=== PATIENT | male | born 1970 | race Caucasian/White ===

== ENCOUNTER 2019-02-13 17:23 | Inpatient (IN) | payer MEDICARE, OTHER ==
[~2019-02-13] VITALS: Ht 182.9 cm; Wt 65.2 kg
[~2019-02-13 17:23] MED LIST: BACL10TA PO; HYDR-3498 PO; HYDR25SU24 PR; IMIP25TA3 PO; MAGN400O19 PO; OMEP20CA16 PO; POLY17PO6 PO; SENN-120 PO; TOLT4CAP PO
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
[2019-02-13] MEDS ORDERED: ACETAMINOPHEN 325 MG TAB PO PRN (20:00)
[2019-02-13] MEDS ORDERED: ONDANSETRON 4 MG INJ IV PRN ×2 (20:00→23:30)
[2019-02-13 22:00] VITALS: BP 123/68; PULSE 76; RESP 18
[2019-02-13] MEDS ORDERED: HYDROCODONE/APAP (5/325) TAB PO PRN ×4 (23:30)
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
[2019-02-14 01:48] VITALS: BP 98/55; PULSE 66; RESP 18
[2019-02-14] MEDS ORDERED: PANTOPRAZOLE (EC) 40 MG TAB PO SCH (06:00)
[2019-02-14 07:29] VITALS: BP 100/55; PULSE 75; RESP 18
[2019-02-14] MEDS ORDERED: NON-FORMULARY/PATIENT OWN MED (Omeprazole* 20 MG) PO SCH (09:00)
[2019-02-14] MEDS ORDERED: POLYETHYLENE GLYCOL 17 GM PACKET PO SCH (09:00)
[2019-02-14] MEDS ORDERED: SENNA TAB PO SCH (09:00)
[2019-02-14] MEDS ORDERED: BACLOFEN 10 MG TAB PO SCH ×2 (09:00)
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
[2019-02-14] MEDS ORDERED: IMIPRAMINE 25 MG TAB PO SCH (21:00)
== END 2019-02-14 10:39 | disposition left against medical advice (07) | DRG 536 ==
LOC: E/R 17:23 → MS1 19:51
PROVIDERS: ADMIT Internal Medicine; ATTEND Internal Medicine
DX: S72.141A Displaced intertrochanteric fracture of right femur, initial encounter for closed fracture (principal); W05.0XXA Fall from non-moving wheelchair, initial encounter; G82.20 Paraplegia, unspecified; Y93.K1 Activity, walking an animal; R07.9 Chest pain, unspecified; T14.90XS Injury, unspecified, sequela; W34.00XS Accidental discharge from unspecified firearms or gun, sequela; D72.829 Elevated white blood cell count, unspecified; F17.200 Nicotine dependence, unspecified, uncomplicated
CPT/HCPCS: 36415; 71045; 72170; 73510; 80048; 80053; 82550; 82553; 84484; 85025; 93005